=== PATIENT | male | born 1945 | race Caucasian/White ===

== ENCOUNTER 2017-11-23 14:43 | Emergency (ER) | payer MEDICARE, OTHER ==
[~2017-11-23] VITALS: Ht 188 cm; Wt 127.0 kg
[~2017-11-23 14:43] MED LIST: ASPIR-LOW81 MG PO; HEMOCYTE PLUS1 EACH PO; LOSARTAN POTAS100 MG PO; LOVENOX40 MG/0.4 SQ; NORCO 7.5-3251 EACH PO; SOTALOL80 MG PO; Z MIRTAZAPINE PO; Z.0.ULTRAM 50MG50 MG PO
[2017-11-23 15:36] LABS: BILIRUBIN,URINE NEGATIVE (NEGATIVE); CLARITY,URINE CLEAR (CLEAR); COLOR,URINE YELLOW (YELLOW); KETONES,URINE NEGATIVE (NEGATIVE); LEUKOCYTE ESTERASE ,URINE NEGATIVE (NEGATIVE); NITRITE,URINE NEGATIVE (NEGATIVE); PROTEIN,URINE DIPSTICK NEGATIVE (NEGATIVE); URINE UROBILINOGEN 4 mg/dL (0.2 - 1)
[2017-11-23 15:52] LABS: EPITHELIAL CELLS,URINE FEW /LPF
--- NOTE | 2017-11-23 16:28 | Diagnostic Imaging Report ---
PROCEDURE: CT ABDOMEN AND PELVIS WITHOUT CONTRAST TECHNIQUE: The abdomen and pelvis were scanned utilizing a multidetector helical scanner from the diaphragm to the lesser trochanter. No IV contrast was administered because of physician request. Coronal and sagittal multiplanar reformations were obtained. DLP: 808.3 mGy-cm COMPARISON: None. INDICATIONS: RIGHT FLANK PAIN FOR 6 MONTHS FINDINGS: ABSENCE OF INTRAVENOUS CONTRAST DECREASES SENSITIVITY FOR DETECTION OF FOCAL LESIONS AND VASCULAR PATHOLOGY. LOWER THORAX: Normal. HEPATOBILIARY: No focal hepatic lesions. No biliary ductal dilatation. SPLEEN: No splenomegaly. Calcified granulomas. PANCREAS: No focal masses or ductal dilatation. ADRENALS: No adrenal nodules. KIDNEYS/URETERS: No hydronephrosis, stones, or solid mass lesions. Fluid attenuating right interpolar 3.5 cm and inferior pole 2.8 cm lesions likely represent cysts. PELVIC ORGANS/BLADDER: Unremarkable. PERITONEUM / RETROPERITONEUM: No free air or fluid. LYMPH NODES: No lymphadenopathy. VESSELS: Mild atherosclerotic calcifications. No abdominal aortic aneurysm. GI TRACT: No distention or wall thickening. Small duodenal diverticulum at the junction of the second and third segments. Extensive sigmoid and moderate descending colonic diverticula without evidence of diverticulitis. Appendix not visualized. However, no stranding to suggest appendicitis. BONES AND SOFT TISSUES: Left femoral intramedullary diamond with surrounding streak artifacts. Small fat-containing umbilical hernia contains a knuckle of a small bowel without evidence of obstruction or strangulation. Neck measures approximately 2.3 cm. Small fat-containing inguinal hernias. IMPRESSION: No acute abnormalities. Dictated by: Rafael Guy M.D. on 11/23/2017 at 16:28 Electronically approved by: Rafael Guy M.D. on 11/23/2017 at 16:28
[2017-11-23 17:00] LABS: BASOPHILS % 0.4 % (0.0-1.0); EOSINOPHILS # (AUTO) 0.1 (0.0-0.4); EOSINOPHILS % 1.6 % (0.0-6.0); HEMATOCRIT 42.1 % (38.2-49.6); HEMOGLOBIN 14.5 g/dL (14.0-18.0); LYMPHOCYTES # (AUTO) 1.4 (1.0-3.2); LYMPHOCYTES % 18.9 % (18.0-39.1); MEAN CORPUSCULAR HEMOGLOBIN 30.1 pg (28-32); MEAN CORPUSCULAR HGB CONC 34.4 g/dL (31-35); MEAN CORPUSCULAR VOLUME 87.3 fL (81-99); MONOCYTES # (AUTO) 0.5 (0.2-0.8); MONOCYTES % 6.2 % (4.4-11.3); NEUTROPHILS # (AUTO) 5.4 (2.1-6.9); NEUTROPHILS % 72.6 % (38.7-80.0); PLATELET COUNT 157 x10e3/uL (140-360); RED BLOOD COUNT 4.82 x10e6/uL (4.3-5.7); RED CELL DISTRIBUTION WIDTH 12.9 % (11.7-14.4)
[2017-11-23 17:09] LABS: INR 1.13; PROTHROMBIN TIME 13.6 seconds (11.9-14.5)
[2017-11-23 17:10] LABS: PARTIAL THROMBOPLASTIN TIME 31.2 seconds (23.8-35.5)
--- NOTE | 2017-11-23 17:13 | Diagnostic Imaging Report ---
PROCEDURE: A single AP view of the chest. COMPARISON: Chest radiograph 01/30/2013 INDICATIONS: RIGHT FLANK PAIN FINDINGS: Lines/tubes: None. Lungs: The lungs are well inflated and clear. There is no evidence of pneumonia or pulmonary edema. Pleura: There is no pleural effusion or pneumothorax. Heart and mediastinum: The heart and the mediastinum are unremarkable. Bones: No acute bony abnormality. IMPRESSION: No acute cardiopulmonary disease. Dictated by: Rafael Guy M.D. on 11/23/2017 at 17:12 Electronically approved by: Rafael Guy M.D. on 11/23/2017 at 17:12
[2017-11-23 17:19] LABS: ALANINE AMINOTRANSFERASE 26 IU/L (0-55); ALBUMIN 4.4 g/dL (3.5-5.0); ALBUMIN/GLOBULIN RATIO 1.3 (0.8-2.0); ALKALINE PHOSPHATASE 93 IU/L (40-150); ANION GAP 15.2 mmol/L (8-16); BLOOD UREA NITROGEN 24 mg/dL (7-26); BUN/CREATININE RATIO 24 (6-25); CALCIUM 9.3 mg/dL (8.4-10.2); CARBON DIOXIDE 23 mmol/L (22-29); CHLORIDE 106 mmol/L (98-107); CREATINE KINASE 154 IU/L (30-200); EST GLOMERULAR FILTRATION RATE > 60 ML/MIN (60-); GLUCOSE 107 mg/dL (74-118); POTASSIUM 4.2 mmol/L (3.5-5.1); SODIUM 140 mmol/L (136-145)
[2017-11-23] MEDS ORDERED: KETOROLAC TROMETHAMINE 30 MG/ML VIAL IV ONE (17:45)
[2017-11-23 18:04] VITALS: BP 173/79
== END 2017-11-23 18:15 | disposition home or self-care (01) ==
LOC: ER 14:43
DX: R10.11 Right upper quadrant pain (principal); S39.012A Strain of muscle, fascia and tendon of lower back, initial encounter; G89.29 Other chronic pain; I10 Essential (primary) hypertension; E11.9 Type 2 diabetes mellitus without complications
CPT/HCPCS: 36415; 71045; 74176; 80053; 81001; 82550; 82553; 84484; 85025; 85610; 85730; 87086; 93005; 99284; J1885

== ENCOUNTER 2018-06-29 13:23 | Emergency (ER) | payer OTHER, MEDICARE ==
[~2018-06-29] VITALS: Ht 188 cm; Wt 127.0 kg
--- NOTE | 2018-06-29 14:38 | Diagnostic Imaging Report ---
Exam: Chest X-ray, 2 views History: Cough. Congestion. Comparison: None Findings: Mild perihilar peribronchial hazy opacity could be due to bronchitis. No consolidated pneumonia, pleural effusion or pneumothorax. Midline trachea. The heart size is normal. The mediastinum is normal. No acute bone abnormality. Impression: Findings which could be due to bronchitis. No consolidative pneumonia, pleural effusion or pneumothorax. Signed by: Dr. Payam Brown M.D. on 06/29/2018 2:35 PM
== END 2018-06-29 15:20 | disposition home or self-care (01) ==
LOC: FSED 13:23
DX: R50.9 Fever, unspecified (principal); R05 Cough; J20.9 Acute bronchitis, unspecified
CPT/HCPCS: 71046; 80053; 85025; 87040; 87400; 99283

== ENCOUNTER → 2020-08-07 | Outpatient (CLI) | payer MEDICARE ==
[~2020-08-07] MED LIST changes: +REGADENOSON 0.4 MG/5 ML SYR IV ONE
== END ==
LOC: NM 08:29
PROVIDERS: ATTEND Internal Medicine Cardiovascular Disease
DX: R07.9 Chest pain, unspecified (principal)
CPT/HCPCS: 78452; 93017; 93306; A9502; J2785

== ENCOUNTER 2021-04-22 18:52 | Emergency (ER) | payer MEDICARE ==
[~2021-04-22] VITALS: Ht 188 cm; Wt 127.0 kg
[~2021-04-22 18:52] MED LIST changes: -REGADENOSON 0.4 MG/5 ML SYR IV ONE
[2021-04-22 19:30] LABS: BASOPHILS # (AUTO) 0.1 (0.0-0.1); BASOPHILS % 0.6 % (0.0-1.0); EOSINOPHILS # (AUTO) 0.2 (0.0-0.4); EOSINOPHILS % 1.8 % (0.0-6.0); HEMATOCRIT 42.7 % (38.2-49.6); HEMOGLOBIN 14.6 g/dL (14.0-18.0); LYMPHOCYTES # (AUTO) 1.4 (1.0-3.2); LYMPHOCYTES % 15.8 % (18.0-39.1); MEAN CORPUSCULAR HGB CONC 34.2 g/dL (31-35); MEAN CORPUSCULAR VOLUME 87.7 fL (81-99); MONOCYTES # (AUTO) 0.6 (0.2-0.8); MONOCYTES % 7.2 % (4.4-11.3); NEUTROPHILS # (AUTO) 6.5 (2.1-6.9); NEUTROPHILS % 74.1 % (38.7-80.0); PLATELET COUNT 204 x10e3/uL (140-360); RED BLOOD COUNT 4.87 x10e6/uL (4.3-5.7); RED CELL DISTRIBUTION WIDTH 13.4 % (11.7-14.4)
[2021-04-22] MEDS ORDERED: METOPROLOL TARTRATE 25 MG TAB ONE (19:30)
[2021-04-22] MEDS ORDERED: METOPROLOL TARTRATE 25 MG TAB PO ONE (19:30)
[2021-04-22 19:40] LABS: PROTHROMBIN TIME 13.8 seconds (11.9-14.5)
[2021-04-22 19:41] LABS: PARTIAL THROMBOPLASTIN TIME 30.3 seconds (23.8-35.5)
[2021-04-22 19:48] LABS: ALBUMIN 4.7 g/dL (3.5-5.0); ALBUMIN/GLOBULIN RATIO 1.5 (0.8-2.0); ANION GAP 17.8 mmol/L (8-16); CALCIUM 9.1 mg/dL (8.4-10.2); CREATININE, SERUM 1.1 mg/dL (0.72-1.25); POTASSIUM 3.8 mmol/L (3.5-5.1)
== END 2021-04-22 22:19 | disposition left against medical advice (07) ==
LOC: ER 19:20
DX: I10 Essential (primary) hypertension (principal)
CPT/HCPCS: 36415; 71045; 80053; 82550; 82553; 82948; 83880; 84484; 85025; 85610; 85730; 93005; 99284

== ENCOUNTER 2023-07-21 13:44 | Observation (INO) | payer MEDICARE ==
[2023-07-17 11:01] LABS: BASOPHILS % 0.8 % (0.0-1.0); EOSINOPHILS # (AUTO) 0.2 (0.0-0.4); EOSINOPHILS % 3.4 % (0.0-6.0); HEMATOCRIT 38.4 % (38.2-49.6); HEMOGLOBIN 13.8 g/dL (14.0-18.0); MEAN CORPUSCULAR HEMOGLOBIN 30.7 pg (28-32); MEAN CORPUSCULAR HGB CONC 35.9 g/dL (31-35); MEAN CORPUSCULAR VOLUME 85.3 fL (81-99); MONOCYTES # (AUTO) 0.4 (0.2-0.8); MONOCYTES % 8.3 % (4.4-11.3); NEUTROPHILS # (AUTO) 3.3 (2.1-6.9); NEUTROPHILS % 66.9 % (38.7-80.0); PLATELET COUNT 147 x10e3/uL (140-360); RED CELL DISTRIBUTION WIDTH 13.2 % (11.7-14.4); WHITE BLOOD COUNT 4.94 x10e3/uL (4.8-10.8)
[2023-07-17 11:27] LABS: ALBUMIN 4.3 g/dL (3.5-5.0); ALBUMIN/GLOBULIN RATIO 1.5 (0.8-2.0); ANION GAP 14.9 mmol/L (8-16); CALCIUM 9.2 mg/dL (8.4-10.2); CHOL/HDL RATIO 4.7 (3.9-4.7); CREATININE, SERUM 0.96 mg/dL (0.72-1.25); POTASSIUM 3.9 mmol/L (3.5-5.1)
[~2023-07-21] VITALS: Ht 188 cm; Wt 127.0 kg
[2023-07-21] VITALS (16 sets, daily range): BP systolic 132–169; BP diastolic 63–88; PULSE 57–104; RESP 8–18; TEMP 97.1–98.5; O2SAT 95–100
[2023-07-21] MEDS ORDERED: ALPRAZOLAM 0.5 MG TAB ONE (14:31)
[2023-07-21] MEDS ORDERED: DIPHENHYDRAMINE HCL 25 MG CAP ONE (14:31)
[2023-07-21] MEDS ORDERED: NEURIVA PLUS B1 EACH PO (15:14)
[2023-07-21] MEDS ORDERED: [UNRECOGNIZED DRUG - OTHER] PO (15:14)
[2023-07-21] MEDS ORDERED: METOPROLOL TART50 MG PO (15:14)
[2023-07-21] MEDS ORDERED: ELIQUIS5 MG PO (15:14)
[2023-07-21] MEDS ORDERED: [UNRECOGNIZED DRUG - OTHER] PO (15:14)
[2023-07-21] MEDS ORDERED: HEPARIN SOD (PORCINE) 1000 UNIT/ML 30ML ONE (16:04)
[2023-07-21] MEDS ORDERED: HEPARIN SOD/SOD CHLORIDE 2,000 ML ONE (16:04)
[2023-07-21] MEDS ORDERED: NITROGLYCERIN/D5W 200 MCG/ML 250 ML ONE (16:04)
[2023-07-21] MEDS ORDERED: SODIUM CHLORIDE 0.9% 1000ML 1,000 ML ONE (16:04)
[2023-07-21] MEDS ORDERED: IOPAMIDOL 370 MG/ML 100 ML INFUS..BTL INJ ONE ×2 (16:04→16:26)
[2023-07-21] MEDS ORDERED: LIDOCAINE HCL 2% LOCAL 20 ML VIAL ONE (16:04)
[2023-07-21] MEDS ORDERED: VERAPAMIL HCL 2.5 MG/ML 2 ML VIAL ONE (16:09)
[2023-07-21] MEDS ORDERED: MIDAZOLAM HCL 2 MG/2 ML VIAL ONE (16:09)
[2023-07-21] MEDS ORDERED: FENTANYL CITRATE/PF 100MCG/2 ML INJ ONE (16:10)
[2023-07-21] MEDS ORDERED: BIVALRIUDIN 250 MG/VIAL VIAL IV ONE (16:19)
[2023-07-21] MEDS ORDERED: PRASUGREL 10 MG TAB PO ONE (16:25)
[2023-07-21] MEDS ORDERED: ASPIRIN 325 MG TAB ONE (16:32)
[2023-07-21] MEDS ORDERED: Morphine 2mg Syringe 2 MG/ML SYR IV PRN (16:45)
[2023-07-21] MEDS ORDERED: HYDROCODONE/APAP 5MG-325MG TAB PO PRN (16:45)
[2023-07-21] MEDS ORDERED: DIPHENHYDRAMINE HCL 25 MG CAP PO ONE (21:45)
[2023-07-21] MEDS: SODIUM CHLORIDE 0.9% 1000ML 1,000 ML IV SCH (22:09)
[2023-07-21] MEDS: APIXABAN 5 MG TABLET PO SCH (22:09)
[2023-07-21] MEDS: METOPROLOL TARTRATE 50 MG TAB PO SCH (22:10)
[2023-07-22 02:16] VITALS: BP 132/63; PULSE 104; RESP 18; TEMP 97.7; O2SAT 97
[2023-07-22] MEDS: SODIUM CHLORIDE 0.9% 1000ML 1,000 ML IV SCH (02:45)
[2023-07-22 03:13] VITALS: BP 151/76; PULSE 108; RESP 18; TEMP 97.6; O2SAT 100
[2023-07-22 08:00] VITALS: BP 166/66; PULSE 97; RESP 20; TEMP 98.5; O2SAT 100
[2023-07-22] MEDS: APIXABAN 5 MG TABLET PO SCH (08:43)
[2023-07-22] MEDS: METOPROLOL TARTRATE 50 MG TAB PO SCH (08:43)
[2023-07-22] MEDS ORDERED: CLOPIDOGREL BISULFATE 75 MG TAB PO SCH (09:00)
[2023-07-22 09:04] VITALS: BP 159/67; PULSE 97; RESP 20; TEMP 98.5; O2SAT 100
== END 2023-07-22 10:18 | disposition home or self-care (01) ==
LOC: CATH LAB 13:44 → INTOOBSV 16:39 → MED/SURG2 16:39
PROVIDERS: ADMIT Internal Medicine Interventional Cardiology; ATTEND Internal Medicine Interventional Cardiology
DX: I25.118 Atherosclerotic heart disease of native coronary artery with other forms of angina pectoris (principal); R94.39 Abnormal result of other cardiovascular function study; I10 Essential (primary) hypertension; I48.91 Unspecified atrial fibrillation; Z79.01 Long term (current) use of anticoagulants; G47.33 Obstructive sleep apnea (adult) (pediatric); E13.69 Other specified diabetes mellitus with other specified complication; E66.9 Obesity, unspecified; Z68.35 Body mass index [BMI] 35.0-35.9, adult; Z79.899 Other long term (current) drug therapy; Z01.812 Encounter for preprocedural laboratory examination
CPT/HCPCS: 93454; C9600; 36415; 80053; 80061; 82948; 85025; 92928; 99152; C1874; C1887; C1894; G0378; J0583; J1644; J2001; J2250; J7030; Q9967